=== PATIENT | male | born 1985 | race Caucasian/White ===

== ENCOUNTER 2016-05-05 11:56 | Emergency (ER) | payer OTHER ==
[2016-05-05 12:23] VITALS: BP 123/64
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
--- OUTSIDE RECORDS SUMMARY | 2016-05-05 13:01 | XMS REPORT | Continuity of Care Document ---
:1985 Author Organization [facility] ([facility]) Address [address] [place] [address] Phone [phone] Care Team Providers Name Role Phone Cherelle Zaman Primary Care Provider [phone] Source Comments This disclosure is being made pursuant to the Care Everywhere program, applicable federal and state laws, and may not contain all informaitonavailable regarding this patient.[facility] ([facility]) Active Allergies and Adverse Reactions Allergen Noted Date Severity Reactions Comments Amoxicillin 03/03/2014 Nausea & Vomiting Current Medications Prescription Sig. Disp. Refills Start Date End Date Status traMADol 50 mg tablet Take 50 mg by Active mouth 4 times daily as needed. allopurinol 100 mg Take 100 mg by Active tablet mouth daily. propranolol 20 mg Take 20-40 mg by Active tablet mouth 2 times daily. naproxen 500 mg tablet Take 500 mg by Active mouth 2 times daily with meals. promethazine-codeine Take 5 mL by 118 mL 0 08/31/2015 Active 6.25-10 mg/5 mL syrup mouth every 4 hours as needed for Cough. HYDROcodone-acetaminoph Take 1 tablet by 30 tablet 0 08/31/2015 Active en 5-325 mg per tablet mouth every 6 hours as needed for Pain. 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 Depression 08/18/2008 Social History Tobacco Use Types Packs/Day Years Used Date Current Every Day Smoker Cigarettes 0.5 Tobacco Cessation:Ready to Quit: No; Counseling Given: Yes Comments: Last Filed Vital Signs Vital Sign Reading Time Taken Blood Pressure 115/70 08/31/2015 8:00 AM CDT Pulse 50 08/31/2015 8:00 AM CDT Temperature 35.9 C (96.6 F) 08/31/2015 8:00 AM CDT Respiratory Rate 18 08/31/2015 11:40 AM CDT Height 1.88 m (6' 2") 08/30/2015 8:00 PM CDT Weight 112.492 kg (248 lb) 08/30/2015 8:00 PM CDT Body Mass Index 31.83 08/30/2015 8:00 PM CDT Oxygen Saturation 96% 08/31/2015 8:00 AM CDT Plan of Care Health Maintenance Due Date Last Done Comments Hepatitis B Vaccine (1 of 3 - Primary Series) 1985 Tdap Vaccine 12/11/1995 Lipid Disorder Screening 2002 MMR Vaccine 2002 Td Vaccine 2002 Varicella Vaccine (1 of 2 - Adult - No Evidence of 2002 Immunity) Pneumococcal Vaccine (1 of 1 - PPSV23) 12/11/2003 Influenza Vaccine: Seasonal (#1) 09/27/2015 Results from Last 3 Months Not on file
== END 2016-05-05 12:56 | disposition home or self-care (01) ==
LOC: ER 11:56
DX: S61.411A Laceration without foreign body of right hand, initial encounter (principal); W25.XXXA Contact with sharp glass, initial encounter; Z86.718 Personal history of other venous thrombosis and embolism; Z86.711 Personal history of pulmonary embolism

== ENCOUNTER 2016-05-21 18:11 | Emergency (ER) | payer OTHER ==
--- OUTSIDE RECORDS SUMMARY | 2016-05-21 18:26 | XMS REPORT | Continuity of Care Document ---
:1985 Author Organization [facility] ([facility]) Address [address] [place] [address] Phone [phone] Care Team Providers Name Role Phone Cherelle Zaman Primary Care Provider [phone] Source Comments This disclosure is being made pursuant to the Care Everywhere program, applicable federal and state laws, and may not contain all informaitonavailable regarding this patient.[facility] ([facility]) Active Allergies and Adverse Reactions Allergen Noted [...]
[2016-05-21] MEDS ORDERED: KETOROLAC TROMETHAMINE 60 MG/2 ML VIAL IM ONE ×2 (18:31→19:03)
[2016-05-21] MEDS ORDERED: DIPHTH,PERTUSS(ACELL),TET VAC 0.5 ML VIAL IM ONE ×2 (18:31→19:04)
[2016-05-21 18:38] VITALS: BP 127/90
[2016-05-21] MEDS ORDERED: HYDROcodone/ACETAMINOPHEN 1 EACH TABLET PO ONE (19:57)
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
[2016-05-21] MEDS ORDERED: HYDROcodone/ACETAMINOPHEN 1 EACH TABLET ONE (20:05)
== END 2016-05-21 20:15 | disposition home or self-care (01) ==
LOC: ER 18:11
DX: S22.31XA Fracture of one rib, right side, initial encounter for closed fracture (principal); Z72.0 Tobacco use; Z23 Encounter for immunization; Y04.0XXA Assault by unarmed brawl or fight, initial encounter; Y93.9 Activity, unspecified; Y92.038 Other place in apartment as the place of occurrence of the external cause; Y99.9 Unspecified external cause status; S00.212A Abrasion of left eyelid and periocular area, initial encounter

== ENCOUNTER 2016-09-25 15:55 | Emergency (ER) | payer OTHER ==
[2016-09-25] MEDS ORDERED: KETOROLAC TROMETHAMINE 60 MG/2 ML VIAL IM ONE ×2 (16:51→16:52)
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
[2016-09-25 16:57] VITALS: BP 108/71
== END 2016-09-25 17:00 | disposition home or self-care (01) ==
LOC: ER 15:55
DX: S90.31XA Contusion of right foot, initial encounter (principal); X58.XXXA Exposure to other specified factors, initial encounter; Y93.89 Activity, other specified; Y92.838 Other recreation area as the place of occurrence of the external cause

== ENCOUNTER 2016-10-12 19:38 | Emergency (ER) | payer OTHER ==
[2016-10-12 19:47] VITALS: BP 117/89
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
== END 2016-10-12 20:23 | disposition home or self-care (01) ==
LOC: ER 19:38
DX: F43.10 Post-traumatic stress disorder, unspecified (principal); Z86.718 Personal history of other venous thrombosis and embolism; Z86.711 Personal history of pulmonary embolism; F17.200 Nicotine dependence, unspecified, uncomplicated

== ENCOUNTER 2016-11-19 10:25 | Emergency (ER) | payer OTHER ==
[2016-11-19 10:40] VITALS: BP 135/80
[2016-11-19] MEDS ORDERED: CEPHALEXIN MONOHYDRATE 250 MG CAPSULE PO ONE (11:09)
[2016-11-19] MEDS ORDERED: IBUPROFEN 600 MG TABLET PO ONE (11:09)
[2016-11-19] MEDS ORDERED: ACETAMINOPHEN 325 MG TABLET PO ONE (11:09)
[2016-11-19] MEDS ORDERED: ACETAMINOPHEN 325 MG TABLET ONE (11:13)
[2016-11-19] MEDS ORDERED: CEPHALEXIN MONOHYDRATE 250 MG CAPSULE ONE (11:13)
[2016-11-19] MEDS ORDERED: IBUPROFEN 600 MG TABLET ONE (11:13)
--- NOTE | 2016-11-19 11:18 | ERNOTE ---
Integumentary HPI - Narrative Date of Service: 11/19/16 - General Presenting Symptoms: insect bite Time Seen by Provider: 11/19/16 11:03 Source: patient, RN notes reviewed Exam Limitations: no limitations - Immun/Allergies/Home Medications Immunizations: IMMUNIZATION HX Immunizations Up to Date Yes History of Influenza Vaccine Yes Hx Pneumococcal Vaccination No Allergies/Adverse Reactions: Allergies Allergy/AdvReac Type Severity Reaction Status Date / Time amoxicillin [Amoxicillin] AdvReac Mild Vomiting Verified 11/19/16 10:40 Home Medications: HOME MEDICATIONS Cephalexin 500 mg PO QID #40 tab 11/19/16 [Last Taken Unknown] Ibuprofen [Motrin] 600 mg PO Q6H PRN #40 tab 11/19/16 [Last Taken Unknown] PARoxetine HCL [Paxil] 20 mg PO DAILY 11/19/16 [Last Taken Unknown] - History of Present Illness Narrative: 30 y/o male presents to the ED for a bug bite on his left posterior calf. He first noticed the lesion 4 days ago. It has become increasingly painful with warmth and induration. The redness surrounding the lesion has been gradually increasing. He reports that he can barely walk, but he has not attempted to take anything for pain. He denies any prior history of skin infections. Location: Reports: lower extremity Quality: Reports: painful Exposure: Reports: no cause identified Prior Treatment: Denies: currently on antibiotics Review of Systems - Review of Systems Constitutional: Present: fatigue, malaise, decreased activity level. Absent: fever, chills EYE: Present: no symptoms reported ENT: Present: no symptoms reported Respiratory: Absent: shortness of breath, cough Cardiology: Absent: chest pain, edema Gastrointestinal/Abdominal: Absent: nausea, vomiting, abdominal pain Genitourinary: Present: no symptoms reported Musculoskeletal: Present: muscle pain. Absent: joint pain, joint swelling Skin: Present: lesions, lumps, change in color. Absent: rash Neurological: Absent: weakness, numbness, tingling Endocrine: Present: no symptoms reported Hematologic/Lymphatic: Present: no symptoms reported Psych: Present: emotional problems - Patient's Past Medical History Patient History - Medical: ADHD, Bipolar, GERD Patient History - Cardiac/Respiratory: Deep Vein Thrombosis, Pulmonary Embolism , Sleep Apnea Patient History - Cancer: No Hx of Cancer Patient History - Surgical Procedures: EGD, Other Patient History - Other: None - Family History Mother Family History - Medical: Diabetes Type 2 Father Family History - Medical: , Diabetes Type 2 Grandmother-Maternal Family History - Medical: Diabetes Type 2 - Social History Living Situations: home Abuse History: No History of abuse Psych History: No pertinent hx, Hx of Bipolar Disorder, Hx of Psychiatric Tx, Current tx/ever been on anti-depressants or anti-anxiety meds Smoking Status: Current every day smoker Cigarettes Packs Per Day: 0.5 Have you smoked in the past 12 months: Yes Alcohol Use: none Drug Use: none - Immunizations Immunizations Up to Date: Yes Hx Pneumococcal Vaccination: No History of Influenza Vaccine: Yes Physical Exam - Physical Exam General Appearance: Present: wd/wn, alert, no apparent distress, other - Disheveled appearing with poor hygiene, not wearing shoes Respiratory: Present: no respiratory distress, normal breath sounds, no accessory muscle use, lungs clear Cardiovascular/Chest: Present: regular rate, rhythm, no murmur, normal peripheral pulses Extremity Exam: Present: normal range of motion, no edema, other - tenderness and induration to left posterior calf. Absent: joint redness, joint swelling, extremity edema Neurological Exam: Present: alert, oriented, no motor/sensory deficits. Absent : normal mood/affect Skin Exam: Present: warm/dry, other - small papule to left posterior calf with surrounding erythema ED Progress - Vital Signs Patient's Vital Signs:: I have reviewed the patient's vital signs. Vital Signs: Vital Signs 11/19/16 10:36 Temperature 36.8 C Pulse Rate 109 H Respiratory 14 Rate Blood Pressure 135/80 O2 Sat by Pulse 99 Oximetry - Progress/Reassessment Chief Complaint: Insect Bite Progress:: Unchanged Departure Clinical Impression: Cellulitis of left lower extremity - Departure Disposition: Home self-care Condition: Stable Instructions: Cellulitis, Adult, [id number] Additional Instructions: Take Tylenol and ibuprofen for pain Elevate your leg as much as possible Apply warm moist compresses to effected area at least 3 times a day Prescriptions: Cephalexin 500 mg PO QID #40 tab Ibuprofen [Motrin] 600 mg PO Q6H PRN #40 tab PRN Reason: Pain
== END 2016-11-19 11:17 | disposition home or self-care (01) ==
LOC: ER 10:25
DX: L03.116 Cellulitis of left lower limb (principal)

== ENCOUNTER 2016-11-22 00:33 | Emergency (ER) | payer OTHER ==
--- NOTE | 2016-11-22 00:44 | ERNOTE ---
<GaudencioDonnie montes - Last Filed: 11/22/16 06:56> Psychological HPI - General Chief Complaint: Drug Overdose Source: Reports: patient Exam Limitations: Reports: no limitations - Immun/Allergies/Home Medications Allergies/Adverse Reactions: Allergies amoxicillin [Amoxicillin] Adverse Reaction (Mild, Verified 11/22/16 00:39) Vomiting Home Medications: HOME MEDICATIONS Cephalexin 500 mg PO QID #40 tab 11/19/16 [Last Taken Unknown] Ibuprofen [Motrin] 600 mg PO Q6H PRN #40 tab 11/19/16 [Last Taken Unknown] PARoxetine HCL [Paxil] 20 mg PO DAILY 11/19/16 [Last Taken Unknown] - History of Present Illness Narrative: Pt had a fight with his girlfriend linda and took excessive medication in order to try to hurt himself. Time Seen by Provider: 11/22/16 00:38 Arrived by: Reports: ambulance Onset/duration: Reports: sudden onset Intent: Reports: suicide, prior thoughts of suicide Mechanism: Reports: overdose Situational Problems: Reports: significant other Associated Symptoms: Reports: depressed, frustrated Review of Systems - Review of Systems Constitutional: Present: recent illness, fever EYE: Present: no symptoms reported ENT: Present: nose congestion, nasal drainage Respiratory: Absent: shortness of breath Cardiology: Present: edema - right ankle. Absent: chest pain Gastrointestinal/Abdominal: Present: abdominal pain - epigastric burning. Absent: nausea, vomiting Genitourinary: Absent: frequency, dysuria Musculoskeletal: Absent: back pain, muscle pain Skin: Present: lesions - insect bite on the back of his left calf Neurological: Absent: dizziness/light-headedness, weakness, numbness Endocrine: Present: no symptoms reported Hematologic/Lymphatic: Present: no symptoms reported Psych: Present: depressed, emotional problems - Patient's Past Medical History Patient History - Medical: ADHD, Bipolar, GERD Patient History - Cardiac/Respiratory: Deep Vein Thrombosis, Pulmonary Embolism , Sleep Apnea Patient History - Cancer: No Hx of Cancer Patient History - Surgical Procedures: EGD, Other Patient History - Other: None - Family History Mother Family History - Medical: Diabetes Type 2 Father Family History - Medical: , Diabetes Type 2 Grandmother-Maternal Family History - Medical: Diabetes Type 2 - Social History Living Situations: home Abuse History: No History of abuse Psych History: No pertinent hx, Hx of Bipolar Disorder, Hx of Psychiatric Tx, Current tx/ever been on anti-depressants or anti-anxiety meds Alcohol Use: none Drug Use: none - Immunizations Immunizations Up to Date: Yes Hx Pneumococcal Vaccination: No History of Influenza Vaccine: Yes Psychological Exam - Exam General Appearance: Present: wd/wn, alert, mild distress Head Exam: Present: normal inspection, no evidence of injury Neurological: Present: alert, calm, road repairer II-XII nml as tested, oriented x 3 Thoughts/Hallucinations: Present: no apparent hallucination Behavior/Eye Contact/Speech: Present: cooperative, decreased rate of speech ENT Exam normal except (see below): Yes Neck: Present: normal inspection, nontender, supple Respiratory: Present: no respiratory distress, normal breath sounds, no accessory muscle use, lungs clear Cardiovascular/Chest: Present: regular rate, rhythm, no murmur, normal peripheral pulses Gastrointestinal/Abdominal: Present: normal bowel sounds, nontender, nondistended Extremity Exam: Present: normal inspection, normal except - - minor edema right medial ankle Skin Exam: Present: normal color, warm/dry, no cyanosis Lymphatic Exam: Present: no adenopathy ED Progress - Results and Orders Patient's Lab Results:: I have reviewed the patient's lab results. Results and Orders: Laboratory Tests 11/22/16 11/22/16 11/22/16 01:00 01:00 01:10 WBC 9.4 Hgb 15.1 Hct 43.6 Plt Count 254 Sodium Potassium Chloride Carbon Dioxide Anion Gap BUN Creatinine Random Glucose Calcium Total Bilirubin AST ALT Alkaline Phosphatase Total Protein Albumin TSH Urine Color Yellow Urine Appearance Clear Urine pH 7.5 Ur Specific [place] 1.015 Urine Protein Negative Urine Glucose (UA) Negative Urine Ketones Negative Urine Blood Negative Urine Nitrate Negative Urine Bilirubin Negative Urine Urobilinogen Normal Ur Leukocyte Esterase Negative Urine RBC None seen Urine WBC None seen Ur Epithelial Cells None seen Urine Bacteria Trace Urine Culture Comments No culture indicated Salicylates Urine Opiates Screen Negative Acetaminophen Barbiturate Screen Negative Ur Phencyclidine Scrn Negative Urine Amphetamine Positive H U Benzodiazepines Scrn Negative Urine Cocaine Screen Negative Urine Marijuana (THC) Negative Ethyl Alcohol 11/22/16 01:10 WBC Hgb Hct Plt Count Sodium 140 Potassium 4.0 Chloride 104 Carbon Dioxide 27.0 Anion Gap 13.0 BUN 18 Creatinine 1.08 Random Glucose 118 H Calcium 9.1 Total Bilirubin 0.5 AST 24 ALT 38 Alkaline Phosphatase 97 Total Protein 7.5 Albumin 3.4 TSH 2.326 Urine Color Urine Appearance Urine pH Ur Specific [place] Urine Protein Urine Glucose (UA) Urine Ketones Urine Blood Urine Nitrate Urine Bilirubin Urine Urobilinogen Ur Leukocyte Esterase Urine RBC Urine WBC Ur Epithelial Cells Urine Bacteria Urine Culture Comments Salicylates Less than 2.8 L Urine Opiates Screen Acetaminophen Less than 0.2 L Barbiturate Screen Ur Phencyclidine Scrn Urine Amphetamine U Benzodiazepines Scrn Urine Cocaine Screen Urine Marijuana (THC) Ethyl Alcohol Less than 3.0 - Vital Signs Patient's Vital Signs:: I have reviewed the patient's vital signs. - Progress/Reassessment Progress:: Improved - Transfer of Care Physician Sign Out: Donnie Santiago Receiving Physician: Erick Mckinney Pending Results: Physician/consult arrival - psychiatric placement Expected Disposition: Transfer Departure Clinical Impression: Borderline personality disorder, Depression, major, recurrent, moderate - Departure Disposition: Other health care facility Condition: Stable Additional Instructions: Follow-up as directed. Return for thoughts of harming yourself or if your condition worsens or chnges in any way. You have an appointment with Dr Doe TOMORROW at 1:45, be there. <Erick Mckinney - Last Filed: 11/22/16 10:23> ED Progress - Results and Orders Patient's Lab Results:: I have reviewed the patient's lab results. - Vital Signs Patient's Vital Signs:: I have reviewed the patient's vital signs. Vital Signs: Vital Signs 11/22/16 11/22/16 11/22/16 02:35 03:02 03:17 Pulse Rate 107 H 81 100 Respiratory 18 18 18 Rate Blood Pressure 123/82 140/77 117/76 O2 Sat by Pulse 98 94 97 Oximetry 11/22/16 11/22/16 11/22/16 03:41 03:59 04:56 Pulse Rate 99 97 93 Respiratory 18 18 18 Rate Blood Pressure 124/82 127/90 122/93 O2 Sat by Pulse 96 94 96 Oximetry 11/22/16 11/22/16 11/22/16 05:30 06:07 08:05 Pulse Rate 94 96 93 Respiratory 18 18 18 Rate Blood Pressure 114/82 122/87 123/81 O2 Sat by Pulse 97 94 94 Oximetry 11/22/16 09:54 Pulse Rate 88 Respiratory 18 Rate Blood Pressure 112/74 O2 Sat by Pulse 99 Oximetry - Progress/Reassessment Progress Note-Subjective: 11/22/16 10:18 Patient was cleared from a medical standpoint. Poison control notified. Cleared after observation. I saw the patient and he states that he is not suicidal, no homicidal and was just upset last night. Dr Doe is his psychiatrist and knows the patient well. Dr Doe feels the patient can be discharged with office follow-up today. Psych has been involved in his care. Patient not actively suicidal or homicidal. Pt released at request of his psychiatrist.
[2016-11-22 01:11] LABS: Hematocrit 43.6 % (42.0-52.0); Hemoglobin 15.1 gm/dL (13.5-18.0); Mean Cell Volume 86.7 fl (78-100); Mean Corpuscular Hgb Conc 34.6 g/dl (32-36); Mean Platelet Volume 9.2 fl (6.0-9.5); Neutrophil # 6.5 K/mm3 (1.3-6.0); Neutrophil % 68.9 % (42-75.0); Platelet Count 254 K/mm3 (150-450); Red Blood Count 5.03 M/mm3 (4.7-6.0); Red Cell Distribution Width 12.4 % (11.5-14.0); White Blood Count 9.4 K/mm3 (4.0-10.5)
[2016-11-22 01:16] LABS: Urine Bilirubin Negative (NEGATIVE); Urine Blood Negative /ul (NEGATIVE); Urine Ketone Negative (NEGATIVE); Urine Nitrite Negative (NEGATIVE); Urine Protein Negative (NEGATIVE); Urine Specific Gravity 1.015 SP.GR. (1.005-1.030); Urine Urobilinogen Normal (NORMAL); Urine pH 7.5 pH (5.0-7.0)
[2016-11-22 01:31] LABS: Cocaine Ur Negative (NEGATIVE); Urine Barbiturate Negative (NEGATIVE); Urine Benzodiazepines Negative (NEGATIVE); Urine Opiates Negative (NEGATIVE); Urine PCP Negative (NEGATIVE); Urine THC Negative (NEGATIVE)
[2016-11-22 01:36] LABS: ALT 38 U/L (19-67); AST 24 U/L (0-48); Albumin * 3.4 gm/dl (3.4-5.0); Alkaline Phosphatase * 97 U/L (50-170); BUN/Creatinine Ratio 16.7 (9.0-21.6); Bilirubin, Total 0.5 mg/dL (0.0-1.1); Blood Urea Nitrogen 18 mg/dL (6-23); Ca. Corrected For Albumin 9.3 mg/dL (8.4-10.2); Calcium * 9.1 mg/dL (7.9-10.9); Chloride 104 mmol/L (97-106); Glucose * 118 mg/dL (70-110); Salicylate Less than 2.8 mg/dL (2.8-20.0); Sodium 140 mmol/L (132-142); TSH * 2.326 uIU/mL (0.358-3.74); Total Protein 7.5 gm/dL (6.2-8.2)
[2016-11-22 02:15] LABS: Urine Appearance Clear; Urine Bacteria TRACE; Urine Color Yellow; Urine RBC None Seen /hpf (0-5); Urine WBC None Seen /hpf (0-5)
[2016-11-22] MEDS ORDERED: NICOTINE 21 MG PATC TD ONE (06:57)
[2016-11-22] MEDS ORDERED: NICOTINE 21 MG PATC TD SCH (07:00)
[2016-11-22 09:55] VITALS: BP 112/74
== END 2016-11-22 10:25 | disposition home or self-care (01) ==
LOC: ER 00:33
DX: F60.3 Borderline personality disorder (principal); F33.1 Major depressive disorder, recurrent, moderate
CPT/HCPCS: 36415; 80053; 80307; 81001; 84443; 85025; 99284; G0480; G0481